=== PATIENT | male | born 1980 | race Caucasian/White ===

== ENCOUNTER 2020-01-30 09:42 | Emergency (ER) | payer SELFPAY ==
[2020-01-30] MEDS ORDERED: Bacitracin 1 PK ONE (10:13)
== END 2020-01-30 10:36 | disposition home or self-care (01) ==
LOC: MADERS 09:42
DX: T23.212A Burn of second degree of left thumb (nail), initial encounter (principal); T31.0 Burns involving less than 10% of body surface; X18.XXXA Contact with other hot metals, initial encounter
CPT/HCPCS: 16020